=== PATIENT | male | born 1985 | race African-American/Black ===

== ENCOUNTER 2018-01-13 11:20 | Emergency (ER) | payer BC ==
[2018-01-13] MEDS ORDERED: ONDANSETRON HCL INJ/PF 4 MG/2 ML SDV IV ONE ×2 (11:28→16:35)
[2018-01-13] MEDS ORDERED: METOCLOPRAMIDE HCL INJ/PF 10 MG/2 ML SDV IV ONE (11:29)
[2018-01-13] MEDS ORDERED: KETOROLAC TROMETHAMINE INJ/PF 30 MG/1 ML SDV IV ONE (11:31)
[2018-01-13] MEDS ORDERED: DIPHENHYDRAMINE HCL 50 MG/ML VIAL IV ONE ×2 (11:31→16:35)
--- NOTE | 2018-01-13 11:32 | ER Document Report ---
ED Medical Screen (RME) - General Chief Complaint: Nausea/Vomiting Stated Complaint: NAUSEA/VOMITING Time Seen by Provider: 01/13/18 11:23 Notes: Patient diabetic with history of gastroparesis cannot stop throwing up at this time. States normally gets better with Reglan, Zofran, Benadryl and Toradol sometimes Phenergan is used as well. Denies any other symptoms. Symptoms started approximately 1 week ago but has gotten worse. I have greeted and performed a rapid initial assessment of this patient. A comprehensive ED assessment and evaluation of the patient, analysis of test results and completion of the medical decision making process will be conducted by additional ED providers. TRAVEL OUTSIDE OF THE [place] IN LAST 30 DAYS: No - Related Data Allergies/Adverse Reactions: Penicillins Allergy (Verified 01/13/18 11:21) Physical Exam - Vital signs Vitals: Temp Pulse Resp BP Pulse Ox 98.4 F 111 H 20 181/108 H 100 01/13/18 11:22 01/13/18 11:22 01/13/18 11:22 01/13/18 11:22 01/13/18 11:22 - Abdominal Inspection: Normal Distension: No distension Bowel sounds: Normal Tenderness: Nontender Organomegaly: No organomegaly Notes: Retching vomiting at this time Course - Vital Signs Vital signs: Temp Pulse Resp BP Pulse Ox 98.4 F 111 H 20 181/108 H 100 01/13/18 11:22 01/13/18 11:22 01/13/18 11:22 01/13/18 11:22 01/13/18 11:22
[2018-01-13] MEDS ORDERED: NORMAL SALINE 1000 ML 1,000 ML IV ONE ×2 (12:42→15:34)
--- NOTE | 2018-01-13 12:48 | ER Document Report ---
ED GI/ - General Chief Complaint: Nausea/Vomiting Stated Complaint: NAUSEA/VOMITING Time Seen by Provider: 01/13/18 11:23 Notes: 32-year-old male with history of diabetes and diabetic gastroparesis presents nausea and vomiting. The patient sees [facility] gastroenterology in [place]. They were going to do a colonoscopy but the patient could not tolerate this on her last prep in August. 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 He has been under a lot of stress lately. He had an episode on where he had to go to the ER in [place] had a CAT scan which was normal and was hydrated was given medicine and felt much better. The patient did well yesterday however this morning and having nausea and vomiting again. Patient returns here for further evaluation. TRAVEL OUTSIDE OF THE [place] IN LAST 30 DAYS: No - Related Data Allergies/Adverse Reactions: Penicillins Allergy (Verified 01/13/18 11:35) chocolate Allergy (Uncoded 01/13/18 11:35) dairy product Allergy (Uncoded 01/13/18 11:35) iv dye Allergy (Uncoded 01/13/18 11:35) seafood Allergy (Uncoded 01/13/18 11:35) Past Medical History - Social History Smoking Status: Never Smoker Chew tobacco use (# tins/day): No Frequency of alcohol use: None Drug Abuse: None Family History: DM Patient has suicidal ideation: No Patient has homicidal ideation: No - Past Medical History Cardiac Medical History: Reports: Hx Hypertension Pulmonary Medical History: Reports: Hx Asthma Endocrine Medical History: Reports: Hx Diabetes Mellitus Type 2 Renal/ Medical History: Denies: Hx Peritoneal Dialysis Past Surgical History: Reports: Hx Cholecystectomy Review of Systems - Review of Systems Constitutional: denies: Chills, Fever Cardiovascular: denies: Chest pain Respiratory: denies: Short of breath Gastrointestinal: Abdominal pain, Nausea, Vomiting, Constipation. denies: Diarrhea Neurological/Psychological: Anxiety. denies: Hallucinations, Weakness, Loss of power, Numbness -: Yes All other systems reviewed and negative Physical Exam - Vital signs Vitals: Temp Pulse Resp BP Pulse Ox 98.4 F 111 H 20 181/108 H 100 01/13/18 11:22 01/13/18 11:22 01/13/18 11:22 01/13/18 11:22 01/13/18 11:22 - Notes Notes: GENERAL_APPEARANCE: well_nourished, alert, cooperative, there is very uncomfortable VITALS: reviewed, see vital signs table. HEAD: no_swelling\tenderness on the head. EYES: PERRL, EOMI, conjunctiva_clear. NOSE: no_nasal_discharge. MOUTH: (-)decreased moisture. THROAT: no_throat_inflammation, no_airway_obstruction. no_lymphadenopathy NECK: supple, no_neck_tenderness, (-)thyromegaly. BACK: no_back_tenderness. CHEST_WALL: no_chest_tenderness. LUNGS: no_wheezing, no_rales, no_rhonchi, (-)accessory muscle use, good air exchange bilateral. HEART: normal_rate, normal_rhythm, normal_S1, normal_S2, (-)S3, (-)S4, no_ murmur, no_rub. ABDOMEN: Diminished_BS, soft, gastric_abd_tenderness, (-)guarding, (-)rebound, no_organomegaly, no_abd_masses. EXTREMITIES: good pulses in all_extremities, no_swelling\tenderness in the extremities, no_edema. SKIN: warm, dry, good_color, no_rash. MENTAL_STATUS: speech_clear, oriented_X_3, anxious_affect, responds_ appropriately to questions. Course - Re-evaluation Re-evalutation: 01/13/18 12:48 32-year-old male presents with gastroparesis. He had a CT on which was normal. His abdomen has some mild epigastric discomfort but no rebound or guarding. My suspicion for any acute intra-abdominal pathology is low I have seen him on multiple occasions in [facility] for the same. Patient does require some IV fluids and medications and usually does well he sees [facility] gastroenterology. He has an appointment on Monday with them. We will try to get him feeling better. 01/13/18 17:51 Patient was monitored he was given many medications and then has felt better is been able to keep down Gatorade and is comfortable going home will prescribe him Reglan for home. - Vital Signs Vital signs: Temp Pulse Resp BP Pulse Ox 98.4 F 111 H 20 181/108 H 100 01/13/18 11:22 01/13/18 11:22 01/13/18 11:22 01/13/18 11:22 01/13/18 11:22 - Laboratory Result Diagrams: 01/13/18 13:53 01/13/18 13:53 Laboratory results interpreted by me: 01/13/18 01/13/18 13:53 13:53 Seg Neutrophils % 78.7 H Glucose 185 H ALT 14 L Discharge - Discharge Clinical Impression: Gastroparesis due to DM Condition: Good Disposition: HOME, SELF-CARE Instructions: Nausea or Vomiting, Nonspecific ([facility]) Prescriptions: Metoclopramide HCl [Reglan 10 mg Tablet] 1 - 2 tab PO ASDIR PRN #25 tablet PRN Reason:
[2018-01-13 14:10] LABS: ABSOLUTE BASOPHILS # (AUTO) 0.1 10^3/uL (0.0-0.2); ABSOLUTE EOSINOPHILS # (AUTO) 0.1 10^3/uL (0.0-0.6); ABSOLUTE LYMPHOCYTES (AUTO) 1.2 10^3/uL (0.5-4.7); ABSOLUTE MONOCYTES (AUTO) 0.6 10^3/uL (0.1-1.4); BASOPHILS % (AUTO) 0.7 % (0-2); EOSINOPHILS % (AUTO) 1.2 % (0-6); HEMATOCRIT 40.4 % (37.9-51.0); HEMOGLOBIN 14.2 g/dL (13.5-17.0); MEAN CORPUSCULAR HEMOGLOBIN 28.1 pg (27.0-33.4); MEAN CORPUSCULAR HGB CONC 35.1 g/dL (32.0-36.0); MEAN CORPUSCULAR VOLUME 80 fl (80-97); MONOCYTES % (AUTO) 6.4 % (3-13); PLATELET COUNT 316 10^3/uL (150-450); RED BLOOD COUNT 5.04 10^6/uL (4.35-5.55); RED CELL DISTRIBUTION WIDTH 13.4 % (11.5-14.0); SEGMENTED NEUTROPHILS % (AUTO) 78.7 % (42-78); TOTAL CELLS COUNTED % (AUTO) 100 %; WHITE BLOOD COUNT 8.9 10^3/uL (4.0-10.5)
[2018-01-13 14:24] LABS: ALANINE AMINOTRANSFERASE 14 U/L (21-72); ALBUMIN 4.2 g/dL (3.5-5.0); ALKALINE PHOSPHATASE 83 U/L (38-126); ANION GAP 14 (5-19); ASPARTATE AMINO TRANSFERASE 19 U/L (17-59); BILIRUBIN,DIRECT 0.1 mg/dL (0.0-0.4); BILIRUBIN,TOTAL 0.9 mg/dL (0.2-1.3); BLOOD UREA NITROGEN 14 mg/dL (7-20); CALCIUM 10.1 mg/dL (8.4-10.2); CARBON DIOXIDE 28 mmol/L (22-30); CHLORIDE 102 mmol/L (98-107); GLUCOSE 185 mg/dL (75-110); POTASSIUM 4.3 mmol/L (3.6-5.0); SODIUM 143.9 mmol/L (137-145); TOTAL PROTEIN 7.5 g/dL (6.3-8.2)
[2018-01-13 14:30] LABS: ALCOHOL < 10 mg/dL (NONE DETECTED)
[2018-01-13] MEDS ORDERED: HALOPERIDOL LACTATE INJ 5 MG/1 ML VIAL IV ONE (15:34)
[2018-01-13 18:05] VITALS: BP 129/86
== END 2018-01-13 18:05 | disposition home or self-care (01) ==
LOC: ER 11:20
DX: E11.43 Type 2 diabetes mellitus with diabetic autonomic (poly)neuropathy (principal); K31.84 Gastroparesis; R11.2 Nausea with vomiting, unspecified; I10 Essential (primary) hypertension; Z91.013 Allergy to seafood; Z88.0 Allergy status to penicillin; Z91.041 Radiographic dye allergy status; Z90.49 Acquired absence of other specified parts of digestive tract
CPT/HCPCS: 96376; 99284; 96361; 96374; 96375; 36415; 80307; 83690; 85025; 80053; J1200; J1630; J1885; J2765; J2405; J7030